=== PATIENT | female | born 1960 | race Caucasian/White ===

== ENCOUNTER → 2016-10-02 | Outpatient (CLI) | payer OTHER ==
--- NOTE | 2016-10-02 22:00 | CT ---
EXAMINATION TYPE: CT brain wo con DATE OF EXAM: 10/02/2016 6:29 PM COMPARISON: NONE HISTORY: 56-year-old female complains of chronic daily migraine headaches x30 years. TECHNIQUE: Examination was done in axial plane without intravenous contrast. Coronal and sagittal r econstructions performed. CT DLP: 1020.3 mGycm Automated exposure control for dose reduction was used. FINDINGS: There is no evidence of acute intracranial hemorrhage, acute ischemic changes, mass, mass-effect, or extra-axial fluid collection. There is no effacement of cerebral sulci or basal subarachnoid cister ns. There is no hydrocephalus. There is no midline shift. Knox-white matter distinction is preserv ed. Paranasal sinuses and mastoid air cells are well pneumatized. Orbits and globes are intact. IMPRESSION: No acute intracranial abnormality seen.
== END | disposition home or self-care (01) ==
LOC: RADCTMAIN 17:47
PROVIDERS: ATTEND Family Medicine
DX: G43.909 Migraine, unspecified, not intractable, without status migrainosus (principal)
CPT/HCPCS: 70450

== ENCOUNTER → 2016-12-04 | Outpatient (CLI) | payer OTHER ==
[2016-12-03 15:29] VITALS: BMI 25.4
[2016-12-04 13:47] VITALS: BP 104/60; PULSE 105; RESP 18; TEMP 98.6
--- NOTE | 2016-12-05 09:17 | P.CONS ---
History of Present Illness - Reason for Consult Consult date: 12/04/16 - History of Present Illness This is the initial consultation visit for this 56 years old female with a chronic history of severe neck pain and headaches started more than 20 years ago , the neck pain and headache is constant and increases with any neck movement or any activity, she had no weakness in the upper or lower extremities, she had no numbness or tingling sensation, no fever or night sweats, the neck pain is constant, increased with neck movement, she had MRI of the brain which was negative for any abnormality, and pain intensity increased over the last year , she denies any visual changes, Past Medical History Past Medical History: Chest Pain / Angina, COPD, GERD/Reflux, Memory Impairment , Musculoskeletal Disorder, Sleep Apnea/CPAP/BIPAP Additional Past Medical History / Comment(s): Tuberculosis history diagnosed August 2015 by biopsy. migraine History of Any Multi-Drug Resistant Organisms: None Reported Past Surgical History: Adenoidectomy, Appendectomy, Tonsillectomy Additional Past Surgical History / Comment(s): left partial lobectomy. dental Past Anesthesia/Blood Transfusion Reactions: No Reported Reaction Past Psychological History: Anxiety, Depression Smoking Status: Current every day smoker Past Alcohol Use History: None Reported Additional Past Alcohol Use History / Comment(s): smoker since age 18 1ppd Past Drug Use History: None Reported - Past Family History Mother Family Medical History: Cancer Additional Family Medical History / Comment(s): breast Father Family Medical History: Cancer Additional Family Medical History / Comment(s): prostate Brother(s) Family Medical History: Cancer Additional Family Medical History / Comment(s): kidney Medications and Allergies Home Medications Medication Instructions Recorded Confirmed Type Albuterol Sulfate [Proair Hfa] 1 - 2 puff INHALATION RT-Q6H PRN 01/05/16 History Desvenlafaxine Succinate [Pristiq 100 mg PO DAILY 01/05/16 12/04/16 History ER] LORazepam [Ativan] 0.5 mg PO BID PRN 01/05/16 12/04/16 History Polyethylene Glycol 3350 [Miralax] 17 gm PO DAILY 01/05/16 12/04/16 History risperiDONE 3 mg PO HS 01/05/16 12/04/16 History traZODone HCL [Desyrel] 150 mg PO HS 01/05/16 12/04/16 History Ipratropium-Albuterol Nebulize 3 ml INHALATION RT-QID PRN 04/01/16 12/04/16 History [Duoneb 0.5 mg-3 mg/3 ml Soln] Alendronate Sodium [Fosamax] 70 mg PO DAILY 12/03/16 12/04/16 History Baclofen [Lioresal] 10 mg PO TID 12/03/16 12/04/16 History HYDROcodone/APAP 10-325MG [Mobile 1 tab PO Q6H PRN 12/03/16 12/04/16 History 10-325] Omeprazole 20 mg PO DAILY 12/03/16 12/04/16 History Pravastatin Sodium [Pravachol] 40 mg PO DAILY 12/03/16 12/04/16 History Allergies Allergy/AdvReac Type Severity Reaction Status Date / Time No Known Allergies Allergy Verified 12/03/16 15:12 Physical Exam Vitals: Vital Signs Temp Pulse Resp BP Pulse Ox 12/04/16 13:38 98.6 F 105 H 18 104/60 95 Social history : smoker , NO ETOH , NO Illegal drugs use Review of Systems : 1- Constitutional : no chills , no fever , no night sweats , 2- Ears : no ear discharge , no change in hearing 3-Nose, Mouth ,Throat ; no bleeding gums, no sore throat , no epistaxis , 4-Cardiovascular : Denies chest pain, , no orthopnea , no palpitation 5-Respiratory : Denies cough , no dyspnea , no hemoptysis 6-Gastrointestinal :, no change in bowel habits , no coffee- ground emesis . 7-Genitourinary : No hematuria , no discharge , no incontinence, 8-Musculoskeletal : No gait dysfunction , report neck and upper thoracic pain , 9- Neurological : no ataxia , no tremor , no sezure , 10-Psychatric , no suicidal ideation no hallucination 11- Endocrine : no cold intolerence , no polyuria , no polydypsia , 12-Hematologic : no easy bleeding , no easy brusing , 13-Allergic / immunology : no angioedema , no wheezing ,no allergic rhinitis 14-Integumentary : no brttle nails , no change hair / nails , no foot/leg ulcers . Physical Examinations : 1-Constitutional : Cooperative , not in acute distress . 2-HEENT : nech ; supple , no Lymphadenopathy , no Thyromegaly , :eyes , no icterus, no photophobia . ENT : , normal oropharynx , no Thrush 3- Respiratory : Chest clear to auscultations Bilaterally , no wheezing . 4- Cardiovascular : regular rate and rhythem , S1 , S2 , no S3 , no S4. 5- Gastrointestinal: abdomen soft no tenderness , no organomegally . 6- Genitourinary : Defferred . 7-Integumentary : No cellulitis , no ulcers , normal skin turgor , no cyanotic . 8- neurologic : Cranial nerve II to XII intact , no focal neurological deffecit 9-psychatric : alert , oriented X 3 , appropriate affect , intact judgment and insight . 10-Lymphatic : no Lymphadenopathy. 11- musculoskeltal: normal gait Cervical Spine motor stregnth in the deltoid and biceps, normal right side , normal Left side motor stregnth biceps and the wrist extensors normal right side ,normal left side . motor stregnth in the triceps muscle . normal Right side , normal Left side deep tendon reflexes normal at the biceps , normal at Brachioradialis , normal at triceps. positive cervical facet loading test . tenderness over the occipital nerve bilaterally Lumber spine moter stegnth lower extremities ,thigh and legs 5/5 Right side , 5/5 Left side Results Comments: Computed tomography scan of the brain= normal Assessment and Plan Plan: Assessment and plan= chronic neck pain and headache mostly secondary to cervical spondylosis with cervical facet arthropathy/cervicogenic headache/ She'll could benefit from Topamax 25 mg twice a day, continue baclofen 10 mg 3 times a day, she is currently on Mobile 10/325 every 6 hours she denies any side effects of the medication, we'll order MRI of the cervical spine, in the future patient can benefit from diagnostic medial branch block cervical area C2 3/C3-4 /3rd occipital Time with Patient: Greater than 30
== END | disposition home or self-care (01) ==
LOC: PNWHC3 12:40
PROVIDERS: ATTEND Specialist
DX: M47.812 Spondylosis without myelopathy or radiculopathy, cervical region (principal); M46.82 Other specified inflammatory spondylopathies, cervical region; F17.200 Nicotine dependence, unspecified, uncomplicated; F41.9 Anxiety disorder, unspecified; F32.9 Major depressive disorder, single episode, unspecified; Z79.899 Other long term (current) drug therapy
CPT/HCPCS: 99211

== ENCOUNTER → 2017-01-03 | Outpatient (CLI) | payer OTHER ==
--- NOTE | 2017-01-06 11:03 | MM ---
Reason for exam: screening (asymptomatic). Last mammogram was performed 1 year ago. History: Patient is postmenopausal and is nulliparous. Family history of breast cancer in sister at age 55. Physical Findings: A clinical breast exam by your physician is recommended on an annual basis and results should be correlated with mammographic findings. MG Screening Mammo w CAD Bilateral CC and MLO view(s) were taken. Prior study comparison: December 29, 2015, bilateral MG diagnostic mammo w CAD ERASTO. The breast tissue is extremely dense which could obscure a lesion on mammography. Finding: There are typically benign vascular, round, grouped/clustered calcifications in the left breast. There is no discrete abnormality. ASSESSMENT: Incomplete: need additional imaging evaluation, BI-RAD 0 RECOMMENDATION: Ultrasound of the left breast. (palpable by patient, dense tissue) [facility] will attempt to contact patient to return for ultrasound.
== END | disposition home or self-care (01) ==
LOC: RADMAMWWP 15:24
PROVIDERS: ATTEND Family Medicine
DX: Z12.31 Encounter for screening mammogram for malignant neoplasm of breast (principal); Z80.3 Family history of malignant neoplasm of breast

== ENCOUNTER → 2017-01-07 | Outpatient (CLI) | payer OTHER ==
--- NOTE | 2017-01-08 07:01 | USB ---
Reason for exam: additional evaluation requested from abnormal screening. History: Patient is postmenopausal and is nulliparous. Family history of breast cancer in sister at age 55, breast cancer in mother at age 73, and breast cancer in maternal aunt. Physical Findings: Nurse did not find any significant physical abnormalities on exam. US Breast Workup Limited LT Left breast ultrasound demonstrates no cystic or solid lesion seen. These results were verbally communicated with the patient and result sheet given to the patient on 01/07/17. ASSESSMENT: Negative, BI-RAD 1 RECOMMENDATION: Return to routine screening mammogram schedule for both breasts.
== END | disposition home or self-care (01) ==
LOC: RADUSWWP 14:57
PROVIDERS: ATTEND Family Medicine
DX: R92.8 Other abnormal and inconclusive findings on diagnostic imaging of breast (principal)

== ENCOUNTER → 2017-01-08 | Outpatient (CLI) | payer OTHER ==
--- NOTE | 2017-01-08 15:21 | CT ---
EXAMINATION TYPE: CT cervical spine wo/w con DATE OF EXAM: 01/08/2017 COMPARISON: NONE HISTORY: Cervical spondylosis per order. Headaches with neck pain for [address] DLP: 894 mGycm. Automated Exposure Control for Dose Reduction was Utilized. TECHNIQUE: CT scan of the cervical spine is obtained without and with IV contrast, axial images are obtained, sagittal and coronal reformatted images are also reviewed. Patient is injected with 100 cc of Omnipaque 300 for the study FINDINGS: Cervical spine is visualized in its entirety from C1 through upper thoracic levels, demonst rates straightened alignment without evidence of acute fracture or dislocation. Prevertebral soft ti ssue appears within normal limits. The C1-C2 articulation is within normal limits on the coronal alcira ges. Vertebral body heights are maintained. There is mild to moderate disc space narrowing with vacuum dis c phenomenon and moderate spurring at C5-C6 level. Posterior spur disc complex effaces anterior theca l sac at this level on sagittal images. No suspicious postcontrast enhancement is seen. Review of axial images shows the C2-C3, C3-C4, C4-C5 levels all to appear within normal limits. Axial images at C5-C6 level confirm central spur disc complex effacing anterior thecal sac, bilateral neural foramina are patent. Axial images at C6-C7 and C7-T1 levels are within normal limits. There is moderate to severe emphysematous change in visualized lung apices with right greater than le ft mild to moderate apical scarring is seen. IMPRESSION: Straightening of cervical spine with degenerative change C5-C6 level.
== END | disposition home or self-care (01) ==
LOC: RADCTMAIN 14:39
PROVIDERS: ATTEND Specialist
DX: M47.812 Spondylosis without myelopathy or radiculopathy, cervical region (principal)
CPT/HCPCS: 72127; Q9967

== ENCOUNTER 2017-01-13 07:41 | Day surgery (SDC) | payer OTHER ==
[2017-01-09 14:49] VITALS: BMI 24.4
[2017-01-13] MEDS ORDERED: LIDOCAINE 1% 20 ML VIAL (10MG/ML) FOR IV START INTRADERMA ONE (07:43)
[2017-01-13] MEDS ORDERED: LACTATED RINGERS 1,000 ML IV ONE (07:45)
[2017-01-13 07:53] VITALS: TEMP 93.8
[2017-01-13] MEDS ORDERED: DEXAMETHASONE SOD PHOS (MDV) 100 MG/10 ML VIAL ONE (08:26)
[2017-01-13] MEDS ORDERED: MIDAZOLAM 2 MG/2 ML VIAL ONE (08:26)
[2017-01-13] MEDS ORDERED: BUPIVACAINE (PF) 0.5% 30 ML VIAL ONE (08:26)
--- NOTE | 2017-01-13 08:49 | P.PCN ---
Date of Procedure: 01/13/17 Preoperative Diagnosis: Postoperative Diagnosis: Procedure(s) Performed: Implants: Surgeon: Marquez Saenz Pathology: none sent Condition: stable Disposition: PACU Indications for Procedure: Operative Findings: Description of Procedure: PREOPERATIVE DIAGNOSIS: Cervical spondylosis without myelopathy, cervicogenic headache. POSTOPERATIVE DIAGNOSIS: same PROCEDURES: Diagnostic bilateral C3, C4 medial branch, and third occipital nerve steroid injection, with fluoroscopic guidance ANESTHESIA: Local with 1% lidocaine; conscious sedation EBL: Minimal PROCEDURE INDICATION: This is a patient with neck pain and headaches secondary to cervical arthropathy unresponsive to more conservative treatments. No use of anticoagulants; first cervical MBB today. PROCEDURE DESCRIPTION / TECHNIQUE: The patient was seen and identified in the preoperative area. Risks, benefits, complications, and alternatives were discussed with the patient (including but not limited to incomplete pain relief , bleeding, infection, nerve damage, and allergies to medications), the patient agreed to proceed with the procedure and signed the consent after all questions were answered. IV was started. Vital signs remained stable throughout the procedure. Patient was taken to the OR and time out was completed. The patient was placed in the prone position on the procedure table. A pillow was placed under the patients chest to increase the cervical interlaminar space. The cervical area was prepped and draped in the usual sterile fashion. Critical pause was taken. Vital signs were closely monitored during the procedure. Conscious sedation was used during the procedure to decrease patients anxiety. Using cross-table lateral fluoroscopy, the centroid of the trapezoid of right C3 , was identified, marked, and localized with 1% lidocaine. Subsequently, a 22 G 3.5-inch spinal needle was advanced guided by fluoroscopy to the centroid of the trapezoid of C3. Needle tip position was confirmed at the centroid of the trapezoids of C3 with anteroposterior fluoroscopy. Subsequently, 1 ml of a combination of 20 mg Decadron and 4 ml of preservative-free Bupivacaine 0.5% was injected after negative aspiration for blood and CSF. Needle was then removed intact. The same procedure was repeated at the right C2/C3 facet joint (for third occipital nerve), right C4, left C2/C3, left C3, and left C4 levels; aspirations were negative at each injection site. At the end of the procedure, skin was cleansed and bandages applied. COMPLICATIONS: No acute complications. COMMENTS: DISPOSITION / PLANS: The patient was placed in a supine position and transferred to the recovery area in a stable condition for observation and was discharged from the recovery room after meeting discharge criteria. Home discharge instructions given to the patient by the staff. The patient was reexamined prior to discharge. The patient will schedule a repeat cervical MBB in 4-6 weeks. Consider adding C5-C6 at next visit if limited relief from first CMBB based on CT result.
[2017-01-13] MEDS ORDERED: KETOROLAC 30 MG/ML 1 ML VIAL IVP STA (09:16)
[2017-01-13 09:22] VITALS: RESP 18
[2017-01-13 09:35] VITALS: BP 106/64; PULSE 73
--- NOTE | 2017-01-13 09:57 | FL ---
FLUOROSCOPY 24 seconds of fluoroscopy time were utilized during cervical branch block. 5 images document the proc edure.
== END 2017-01-13 10:02 | disposition home or self-care (01) ==
LOC: ORPAIN 07:41
PROVIDERS: ATTEND Anesthesiology
DX: G89.29 Other chronic pain (principal); M47.812 Spondylosis without myelopathy or radiculopathy, cervical region; M46.92 Unspecified inflammatory spondylopathy, cervical region; R51 Headache; E78.5 Hyperlipidemia, unspecified; F41.9 Anxiety disorder, unspecified; F31.9 Bipolar disorder, unspecified; M81.0 Age-related osteoporosis without current pathological fracture; J44.9 Chronic obstructive pulmonary disease, unspecified; K21.9 Gastro-esophageal reflux disease without esophagitis; G47.30 Sleep apnea, unspecified; F17.200 Nicotine dependence, unspecified, uncomplicated; Z79.899 Other long term (current) drug therapy; Z79.891 Long term (current) use of opiate analgesic
CPT/HCPCS: 64490; 64491; 64492; 99152; G0480; J2250; J1885; J1100; 80307; 80346; 80356; 80364

== ENCOUNTER → 2017-02-10 | Outpatient (CLI) | payer OTHER ==
[2017-02-10 12:21] VITALS: BP 99/71; PULSE 76; RESP 16; TEMP 97.6
--- NOTE | 2017-02-10 12:52 | P.PN ---
Progress Note - Text This is a 56-year-old female with chronic frequent headaches. The patient failed to respond to antimigraine medications and also failed to respond to injections on the cervical spine. I think the cervical spine as a cause of her headache is questionable at this point especially that her headache does not change with the movements of her neck. The patient also feels pain in the upper back area and she states that taking [place] twice a day help slightly with the headache only for half an hour or so but it does help her with the upper back area pain. At this point I will hold off on the injections on the cervical spine because of the patient's failure to respond to these injections previously of continue [place] twice a day but I told the patient that opioids usually do not help with the headache and I'll give her [place] to help her with the spine pain. I also advised the patient to visit her neurologist one more time since the last time she had seen a neurologist was 2 years ago. Her neuro exam today did not show any lateralizing signs or symptoms. We will see the patient 2 months from now.
== END | disposition home or self-care (01) ==
LOC: PNWHC3 11:51
PROVIDERS: ATTEND Anesthesiology
DX: R51 Headache (principal); M54.2 Cervicalgia
CPT/HCPCS: G0480; G0463; 80307; 80346; 80356; 80364; 99211

== ENCOUNTER → 2017-04-07 | Outpatient (CLI) | payer OTHER ==
[2017-04-07 12:47] VITALS: BP 111/73; PULSE 82; RESP 16
--- NOTE | 2017-04-07 13:01 | P.PN ---
Progress Note - Text This is a 56-year-old female with history of headache and neck pain. Today and contrary to what she told me last time, she does say now that the last injection of the medial branches of her cervical spine did help her pain. She is getting numbness in her right arm at this point and also feels muscle spasm in her chest and also in her feet. The patient still takes 2 pills of [place] a day to help her with the neck and upper back pain. Today I will schedule the patient to have cervical medial branch block for levels C2-C3 and third occipital nerve. I will continue with her [place] twice a day as needed and I will add magnesium oxide for her muscle spasm. The patient also may need to have medial branch block in the cervical spine for the lower levels see 56 and 7 to address her lower neck and upper back pain but I will start by doing the upper levels to address her headache.
== END | disposition home or self-care (01) ==
LOC: PNWHC3 12:15
PROVIDERS: ATTEND Anesthesiology
DX: M54.2 Cervicalgia (principal); M54.9 Dorsalgia, unspecified; R51 Headache; R20.0 Anesthesia of skin; M62.838 Other muscle spasm; Z79.899 Other long term (current) drug therapy
CPT/HCPCS: 99211

== ENCOUNTER 2017-04-29 07:51 | Day surgery (SDC) | payer OTHER ==
[2017-04-24 15:43] VITALS: BMI 21.8
[2017-04-29 08:31] VITALS: RESP 16; TEMP 97.9
[2017-04-29] MEDS ORDERED: LACTATED RINGERS 1,000 ML IV ONE (08:35)
--- NOTE | 2017-04-29 09:33 | P.PCN ---
Date of Procedure: 04/29/17 Surgeon: Marquez Saenz Pathology: none sent Condition: stable Disposition: PACU Description of Procedure: PREOPERATIVE DIAGNOSIS: Cervical spondylosis without myelopathy, cervicogenic headache. POSTOPERATIVE DIAGNOSIS: same PROCEDURES: Diagnostic bilateral C2-C3 medial branch block and third occipital nerve steroid injection, with fluoroscopic guidance ANESTHESIA: Local with 1% lidocaine; conscious sedation EBL: Minimal PROCEDURE INDICATION: This is a patient with neck pain and headaches secondary to cervical arthropathy unresponsive to more conservative treatments. No use of blood thinners. MBB #1 today. PROCEDURE DESCRIPTION / TECHNIQUE: The patient was seen and identified in the preoperative area. Risks, benefits, complications, and alternatives were discussed with the patient (including but not limited to incomplete pain relief , bleeding, infection, nerve damage, and allergies to medications), the patient agreed to proceed with the procedure and signed the consent after all questions were answered. IV was started. Vital signs remained stable throughout the procedure. Patient was taken to the OR and time out was completed. The patient was placed in the prone position on the procedure table. A pillow was placed under the patients chest to increase the cervical interlaminar space. The cervical area was prepped and draped in the usual sterile fashion. Critical pause was taken. Vital signs were closely monitored during the procedure. Conscious sedation was used during the procedure to decrease patients anxiety. Using cross-table lateral fluoroscopy, the centroid of the trapezoid of right C3 , was identified, marked, and localized with 1% lidocaine. Subsequently, a 25 G spinal needle was advanced guided by fluoroscopy to the centroid of the trapezoid of C3. Needle tip position was confirmed at the centroid of the trapezoids of C3 with anteroposterior fluoroscopy. Subsequently, 1 ml of a combination of 10 mg Decadron and 3 ml of preservative-free Bupivacaine 0.5% was injected after negative aspiration for blood and CSF. Needle was then removed intact the same procedure was repeated at the right C2/C3 facet joint ( for third occipital nerve). The procedure was repeated exactly in the same manner on the left side for C2- C3 and third occipital nerve on the left side. COMPLICATIONS: No acute complications. COMMENTS: DISPOSITION / PLANS: The patient was placed in a supine position and transferred to the recovery area in a stable condition for observation and was discharged from the recovery room after meeting discharge criteria. Home discharge instructions given to the patient by the staff. The patient was reexamined prior to discharge. The patient will schedule a repeat CMBB C2-C3, TON bilateral. If limited relief, consider adding C3-C4 level for next procedure.
[2017-04-29] MEDS ORDERED: IV FLUID CONTINUATION 1,000 ML IV ONE (09:42)
[2017-04-29 10:10] VITALS: BP 122/79; PULSE 70
--- NOTE | 2017-04-29 11:02 | FL ---
Fluoroscopy HISTORY: Pain 19 seconds fluoroscopy time supplied to the referring clinician. 4 intraoperative C-arm images docum ent the procedure. See dictated report from anesthesia.
== END 2017-04-29 10:30 | disposition home or self-care (01) ==
LOC: ORPAIN 07:51
PROVIDERS: ATTEND Anesthesiology
DX: M47.812 Spondylosis without myelopathy or radiculopathy, cervical region (principal); R51 Headache; Z79.891 Long term (current) use of opiate analgesic
CPT/HCPCS: 99152; 64490; 64491; J2250; J1100; 64450

== ENCOUNTER → 2017-06-02 | Outpatient (CLI) | payer OTHER ==
[2017-06-02 14:35] VITALS: BP 103/58; PULSE 86; RESP 16; TEMP 98.2
--- NOTE | 2017-06-02 14:50 | P.PN ---
Progress Note - Text Progress Note Date: 06/02/17 This is a 56-year-old female with a chronic history of migraine headaches and neck pain. The patient failed to respond to cervical medial branch blocks including the third occipital nerve. She tried multiple antimigraine medications and also failed to respond to any of them. At this point I would like to refer the patient to a neurologist for persistent migraine headaches. The last time she saw a neurologist with about 10 years ago in [place] however she said that she also in saw neurologist in [place] about one year ago who suggested what seems to be a sphenopalatine node injection however she did not want to go through this procedure. At this point I will give her prescription for [place] 10 mg twice a day and I will see her after she sees a neurologist. PQRS measures: 1-Patient's medications are documented in the chart. 2-Tobacco use is negative, counseling given. The patient is taking Chantix. 3-Patient has not had a pneumococcal vaccine. 4-Advanced care planning discussed, patient unable to give 5-Opioid contract signed with the patient. 6-Pain positive, follow-up visit or procedure scheduled 7-Patient's blood pressure measured and documented within normal limits. 8-Patient's weight was measured, and body mass index was normal 9-Patient WAS NOT identified as an unhealthy alcohol user.
== END | disposition home or self-care (01) ==
LOC: PNWHC3 14:07
PROVIDERS: ATTEND Anesthesiology
DX: G43.909 Migraine, unspecified, not intractable, without status migrainosus (principal); M54.2 Cervicalgia
CPT/HCPCS: 99211

== ENCOUNTER → 2017-07-07 | Outpatient (CLI) | payer OTHER ==
--- NOTE | 2017-07-07 17:36 | XR ---
EXAMINATION: XR chest 2V DATE AND TIME: 07/07/2017 5:07 PM ORDERING PROVIDER: Alhaji Prajapati MD CLINICAL INDICATION: J44.9 COPD TECHNIQUE: PA and lateral COMPARISON: Chest radiographs 04/01/2016 DESCRIPTION: The lungs are clear, other than the numerous calcifications, particularly within the rig ht lower lobe and consistent with pulmonary calcified granulomas, seen on the prior study. * There is a new 1 cm opacity projecting just above the minor fissure, not definitely seen on the mj or study. While the finding appears to be calcific density, and while there appears to be a candidate for this finding on the prior study (related to the EKG lead over the right mid chest), the rotation of these radiographs are similar. Therefore, would CT characterization at this time. The pleural spaces are negative. The cardiac silhouette is not enlarged, and the mediastinal and pleural silhouettes are unremarkable. The skeletal structures are intact without focal findings. The soft tissues are unremarkable. IMPRESSION: WOULD SUGGEST CHEST CT CHARACTERIZATION AT THIS TIME.
== END | disposition home or self-care (01) ==
LOC: RADXRMAIN 16:59
PROVIDERS: ATTEND Internal Medicine Sleep Medicine
DX: J44.9 Chronic obstructive pulmonary disease, unspecified (principal)
CPT/HCPCS: 71020

== ENCOUNTER → 2017-08-14 | Outpatient (CLI) | payer OTHER ==
--- NOTE | 2017-08-14 14:44 | P.PN ---
Progress Note - Text Progress Note Date: 08/14/17 Patient returns for followup for chronic headaches. Patient has undergone two sets of CMBBs without relief of her headache pain, although she did have some relief in the neck. She has an appointment to see Dr. Og for headaches in August. Patient continues on [place] BID medications for pain with some relief , but is unable to leave her house due to severe headache pain. Patient denies adverse drug effects from medications. Today, pt denies new-onset weakness, bowel/bladder incontinence, or any other signs or symptoms of cauda equina syndrome. There are no signs of acute intoxication, and no indications of medication diversion or overuse. In addition to above, 13-point review of systems is also negative for chest pain , shortness of breath, changes in vision, changes in hearing, new onset weakness , abdominal pain, diarrhea, extreme fatigue, malaise, fever, skin changes, homicidal or suicidal ideation, or bowel or bladder incontinence. Vital Signs: Reviewed in EMR Gen: WDWN, AAOx3, NAD HEENT: NCAT, EOMI, hearing grossly normal, no tenderness over occipital ridges Pulm: resp unlabored Abd: soft, NT, ND Neck: supple, trachea midline Neuro: CN II-XII grossly intact, muscle strength lower extremities PRESERVED Imaging: Reviewed in EMR Assessment: 1. chronic migraine 2. cervical spondylosis 3. chronic pain syndrome Plan: 1. Explanation: Opioid and psychological risk scores were reviewed. Diagnoses , prognoses, and multiple treatment options including but not limited to physical therapy, interventional therapies, adjuvant medical therapies, narcotic medication therapies, and surgery were discussed with the patient and all questions were answered to the patient's satisfaction. 2. Opioid agreement: Patient has previously signed narcotic agreement, and was orally counseled to not overuse, abuse, divert, or cell medications, and to take them as prescribed by only 1 healthcare provider. The patient was also counseled to store opioid medications in a safe and preferably locked location. Patient was also counseled against driving or operating heavy equipment while using narcotic medications and also to not use alcohol or any illicit or recreational drugs. The patient verbalized understanding that lack of compliance with any of the above and likely result in failure to renew narcotic prescriptions, possible discharge from the clinic, and possible legal ramifications thereafter if indicated. 3. Counseling: The patient was counseled extensively on BODY MASS INDEX, EXERCISE. Specifically, the patient was instructed regarding the importance of weight control, and exercise in the context of both chronic pain and overall health. 4. Procedures: none for now 5. Consultations: neurology 6. Investigations: None 7. Medications: [place] 10/325 #60 with two refills 8. Disposition: f/u for re-eval in 3 months (if needed) PQRS measures: 1-Patient's medications are documented in the chart. 2-Tobacco use is negative 3-Patient has not had a pneumococcal vaccine. 4-Advanced care planning discussed, patient unable to give. 5-Opioid contract signed with the patient. 6-Pain positive, follow-up visit or procedure scheduled 7-Patient's blood pressure measured and documented, and patient will follow up with the primary care due to hypertension. 8-Patient's weight was measured, and body mass index ABOVE the normal limits, and counseling was done. Patient instructed to follow up with PCP. 9-Patient WAS NOT identified as an unhealthy alcohol user.
[2017-08-14 14:51] VITALS: BP 113/70; PULSE 98; RESP 16
== END | disposition home or self-care (01) ==
LOC: PNWHC3 13:48
PROVIDERS: ATTEND Anesthesiology
DX: G89.4 Chronic pain syndrome (principal); G43.909 Migraine, unspecified, not intractable, without status migrainosus; M47.812 Spondylosis without myelopathy or radiculopathy, cervical region; Z79.891 Long term (current) use of opiate analgesic
CPT/HCPCS: 80307; G0480 ×3; G0463; 80346; 80356; 80364; 99211

== ENCOUNTER → 2017-09-18 | Outpatient (CLI) | payer OTHER ==
--- NOTE | 2017-09-18 14:59 | MR ---
EXAMINATION TYPE: MR brain wo con DATE OF EXAM: 09/18/2017 2:42 PM COMPARISON: NONE HISTORY: headaches FINDINGS: The ventricles, basal cisterns and sulci overlying the cerebral convexities are minimally enlarged. There is evidence of minimal periventricular white matter ischemic demyelination. Remote deep white matter insults are also noted. No acute edema is seen on diffusion weighted imaging. There is no evidence for midline shift or mass effect. Acute intracranial hemorrhage or extra-axial collection is not evident. The paranasal sinuses and mastoid air cells are well-aerated. IMPRESSION: Age-related atrophic and chronic small vessel ischemic change. No acute intracranial process at this time.
== END | disposition home or self-care (01) ==
LOC: RADMRIMAIN 14:16
PROVIDERS: ATTEND Psychiatry & Neurology Neurology
DX: G31.1 Senile degeneration of brain, not elsewhere classified (principal); I67.82 Cerebral ischemia; M54.81 Occipital neuralgia
CPT/HCPCS: 70551

== ENCOUNTER → 2017-10-09 | Outpatient (CLI) | payer OTHER ==
[2017-10-09 16:20] LABS: Blood Urea Nitrogen 10 mg/dL (7-17); Lithium 0.9 mmol/L
[2017-10-09 16:35] LABS: T4, Free (Free Thyroxine) 0.73 ng/dL (0.78-2.19)
== END | disposition home or self-care (01) ==
LOC: LABWHC1 15:21
PROVIDERS: ATTEND Psychiatry & Neurology Psychiatry
DX: F31.32 Bipolar disorder, current episode depressed, moderate (principal)
CPT/HCPCS: 36415; 80178; 82565; 84439; 84443; 84520

== ENCOUNTER → 2017-11-06 | Outpatient (CLI) | payer OTHER ==
[2017-11-06 13:14] VITALS: BP 95/69; PULSE 109; RESP 18
--- NOTE | 2017-11-06 13:35 | P.PN ---
Subjective Progress Note Date: 11/06/17 This is 57 years old female with a chronic history of severe neck pain and headache, she is diagnosed with cervicogenic headache , and cervical spondylosis , we have done diagnostic medial branch block cervical area C2-C3/C3 4 and third occipital nerve, patient reported that her neck pain improved but her headache was the same she had no benefit, patient denies any motor or sensory deficit, the headache is constant it's more on the left side, occasionally she has some headache on the right side, she was evaluated by neurologist Dr. Og , and she recommended occipital nerve block Objective - Vital Signs Vital signs: Vital Signs Temp Pulse 109 H 11/06/17 13:04 Resp 18 11/06/17 13:04 BP 95/69 11/06/17 13:04 Pulse Ox 98 11/06/17 13:04 Intake & Output 11/05/17 11/06/17 11/06/17 18:59 06:59 18:59 Weight 63.503 kg - Exam Physical Examinations : 1-Constitutiona : Cooperative , not in acute distress . 2-HEENT : nech ; supple , no Lymphadenopathy , normal thyroid size . eyes : no ptosis , no icterus, no photophobia . ENT : normal of hearing , normal oropharynx , no Thrush . 3- Respiratory : Chest clear to auscultations Bilaterally , no wheezing , no Rhonchi . 4- Cardiovascular : regular rate and rhythem , S1 , S2 , no S3 , no S4. 5- Gastrointestinal : abdomen soft no tenderness , bowel sounds positive all four quadrents , no organomegally . 6- Genitourinary : Defferred . 7- neurologic : Cranial nerve II to XII intact , no focal neurological deffecit . 8-psychatric : alert , oriented X 3 , appropriate affect , intact judgment and insight . 9-Lymphatic : no Lymphadenopathy . 10- musculoskeltal : cervical spine = motor stregnth in the deltoid and biceps, motor stregnth biceps and the wrist extensors (C6) . motor stregnth in the triceps muscle . deep tendon reflexes normal at the biceps , normal at Brachioradialis , normal at the Triceps positive cervical facet loading test . Severe tenderness over the occipital nerve bilaterally, more prominent on the left side Lumber spine = normal moter stegnth lower extremities ,thigh and legs .5/5 Assessment and Plan Assessment: Assessment and plan= 1-occipital neuralgia 2-cervicogenic headache 3-cervical spondylosis Status post diagnostic medial branch block cervical area C2 3 , C3 4 and third occipital nerve, patient had no benefit from it she continued to have severe headache Tissue was evaluated by Dr. Og ,and she recommended occipital nerve block chronic and current use of high-risk medication (opioids) Patient denies any side effects of the current pain medication and the current treatment/medication ML and the patient to do activity of daily living , Diagnoses, prognosis, treatment options, including but not limited to physical therapy, medication management, interventional therapies, and surgery, were discussed with the patient All the questions answered Patient signed the narcotic agreement, and he was orally counseled, not to overuse, not to abuse, not to Divert , not tp sell pain medication, and to take it as prescribed only, Patient was counseled not to drive or operate heavy equipment while using narcotic medication, and advised not to use alcohol or any Illicit drugs while using the narcotis, the patient's verbalized understanding that lack of compliance with any of the above instructions and will likely to cause discharge from the pain service, not to renew his narcotic prescriptions Medication managements= patient will be given prescription refills for [place] 10/325 every 12 hours dispense 60 with one refill, patient could benefit from Mobic 7.5 by mouth twice a day, and prescription refill for baclofen 10 mg 3 times a day dispense 90 with 1 refill Patient could benefit from bilateral occipital nerve block, procedure risk and benefits and alternatives discussed with the patient and she agreed with the preceding , Time with Patient: Less than 30
== END | disposition home or self-care (01) ==
LOC: PNWHC3 12:23
PROVIDERS: ATTEND Specialist
DX: M54.81 Occipital neuralgia (principal); M47.812 Spondylosis without myelopathy or radiculopathy, cervical region; M54.2 Cervicalgia; R51 Headache; Z98.890 Other specified postprocedural states
CPT/HCPCS: 99211

== ENCOUNTER 2017-11-20 07:36 | Day surgery (SDC) | payer OTHER ==
[2017-11-17 14:23] VITALS: BMI 26.0
[2017-11-20 08:10] VITALS: RESP 18; TEMP 97.6
[2017-11-20] MEDS ORDERED: LACTATED RINGERS 1,000 ML IV ONE (08:24)
[2017-11-20] MEDS ORDERED: LIDOCAINE 1% 20 ML VIAL (10MG/ML) FOR IV START INTRADERMA ONE (08:24)
[2017-11-20 08:31] LABS: Glucose,Whole Blood 93 mg/dL (75-99)
--- NOTE | 2017-11-20 08:50 | P.PCN ---
Date of Procedure: 11/20/17 Surgeon: Froylan Farmer Description of Procedure: Pre-operative diagnosis: 1- Bilateral occipital neuralgia Post Operative Diagnosis 1- Bilateral occipital neuralgia Procedure: 1- Bilateral occipital nerve block ANESTHESIA: none EBL: Minimal PROCEDURE INDICATION: The patient with neck pain and headache secondary to occipital neuralgia unresponsive to conservative treatments. She has undergone previous diagnostic cervical medial branch nerve blocks. These were helpful for her neck pain but did not help with her headaches. PROCEDURE DESCRIPTION / TECHNIQUE: The patient was seen and identified in the preoperative area. Risks, benefits, complications, and alternatives were discussed with the patient, the patient agreed to proceed with the procedure and signed the consent. IV was started. Vital signs remained stable throughout the procedure. Patient was taken to the OR and time out was completed. The patient was placed in the seated position on the procedure table. The cervical area and right occiptial area were prepped with alcohol swab. Vital signs were closely monitored during the procedure. The right occiptal ridge was palpated and was then accessed with a 25 G needle. Then after negative aspiration, 6 ml of the block solution containing 4 ml of PF Buvicaine 0.5% and Kenalog 40 mg was injected. Needle was withdrawn intact. Then the same procedure was repeated on the left side and related the left occipital nerve block, after negative aspiration 4 mL of the block solution containing ropivacaine 0.5% and 40 mg of Kenalog injected after negative aspiration Patient tolerated procedure well. No acute complications. She will follow-up in 2-4 weeks for repeat of this procedure.
[2017-11-20] MEDS ORDERED: IV FLUID CONTINUATION 1,000 ML IV ONE (08:51)
[2017-11-20 09:16] VITALS: BP 104/72; PULSE 78
== END 2017-11-20 09:29 | disposition home or self-care (01) ==
LOC: ORPAIN 07:36
PROVIDERS: ATTEND Pain Medicine Pain Medicine
DX: M54.81 Occipital neuralgia (principal)
CPT/HCPCS: 64405; J3301

== ENCOUNTER → 2018-01-01 | Outpatient (CLI) | payer OTHER ==
[2018-01-01 12:09] VITALS: BP 90/54; RESP 18
[2018-01-01 12:17] VITALS: PULSE 98
--- NOTE | 2018-01-01 12:33 | P.PN ---
Progress Note - Text Progress Note Date: 01/01/18 Patient returns for followup for chronic headaches. Patient has undergone two sets of CMBBs without relief of her headache pain, although she did have some relief in the neck. Patient also status post bilateral occipital nerve blocks which she had no benefit. Patient continues on [place] BID medications for pain with some relief, but is unable to leave her house due to severe headache pain. Patient is also being prescribed benzodiazepines, I discussed with her that it 's extremely hazardous for her overall health the consumption of both opiates and benzodiazepines. During our discussion I mentioned that we would be unable to prescribe her [place] while being prescribed benzodiazepines by other physicians patient understands this and states that she does one attempt to wean off of the opiates altogether. I did discuss with her that if she did continue with the benzodiazepines that we would altogether stop prescribing her opiates. Patient has tried and failed multiple therapies for her headaches which include Botox injections, acupuncture, cervical medial branch blocks, and occipital nerve block. Patient does have a cervical MRI scheduled in the coming days, also was referred to a headache specialist through [facility], and has an appointment later this month. Today, pt denies new-onset weakness, bowel/ bladder incontinence, or any other signs or symptoms of cauda equina syndrome. There are no signs of acute intoxication, and no indications of medication diversion or overuse. In addition to above, 13-point review of systems is also negative for chest pain , shortness of breath, changes in vision, changes in hearing, new onset weakness , abdominal pain, diarrhea, extreme fatigue, malaise, fever, skin changes, homicidal or suicidal ideation, or bowel or bladder incontinence. Vital Signs: Reviewed in EMR Gen: WDWN, AAOx3, NAD HEENT: NCAT, EOMI, hearing grossly normal, no tenderness over occipital ridges Pulm: resp unlabored Abd: soft, NT, ND Neck: supple, trachea midline Neuro: CN II-XII grossly intact, muscle strength lower extremities PRESERVED Imaging: Reviewed in EMR Assessment: 1. chronic migraine 2. cervical spondylosis 3. chronic pain syndrome Plan: 1. Explanation: Opioid and psychological risk scores were reviewed. Diagnoses , prognoses, and multiple treatment options including but not limited to physical therapy, interventional therapies, adjuvant medical therapies, narcotic medication therapies, and surgery were discussed with the patient and all questions were answered to the patient's satisfaction. 2. Opioid agreement: Patient has previously signed narcotic agreement, and was orally counseled to not overuse, abuse, divert, or cell medications, and to take them as prescribed by only 1 healthcare provider. The patient was also counseled to store opioid medications in a safe and preferably locked location. Patient was also counseled against driving or operating heavy equipment while using narcotic medications and also to not use alcohol or any illicit or recreational drugs. The patient verbalized understanding that lack of compliance with any of the above and likely result in failure to renew narcotic prescriptions, possible discharge from the clinic, and possible legal ramifications thereafter if indicated. 3. Counseling: The patient was counseled extensively on BODY MASS INDEX, EXERCISE. Specifically, the patient was instructed regarding the importance of weight control, and exercise in the context of both chronic pain and overall health. 4. Procedures: none for now 5. Consultations: neurology 6. Investigations: Maps reviewed 7. Medications: [place] 10/325 #60 zero refills 8. Disposition: f/u for re-eval in 1 month to review cervical MRI. PQRS measures: 1-Patient's medications are documented in the chart. 2-Tobacco use positive and discussed smoking cessation in great detail 3-Patient has not had a pneumococcal vaccine. 4-Advanced care planning discussed, patient unable to give. 5-Opioid contract signed with the patient. 6-Pain positive, follow-up visit or procedure scheduled 7-Patient's blood pressure measured and documented, and patient will follow up with the primary care due to hypertension. 8-Patient's weight was measured, and body mass index ABOVE the normal limits, and counseling was done. Patient instructed to follow up with PCP. 9-Patient WAS NOT identified as an unhealthy alcohol user.
== END | disposition home or self-care (01) ==
LOC: PNWHC3 11:51
PROVIDERS: ATTEND Anesthesiology
DX: G89.4 Chronic pain syndrome (principal); G43.709 Chronic migraine without aura, not intractable, without status migrainosus; M47.812 Spondylosis without myelopathy or radiculopathy, cervical region; Z72.0 Tobacco use; Z79.891 Long term (current) use of opiate analgesic
CPT/HCPCS: 99211

== ENCOUNTER → 2018-01-15 | Outpatient (CLI) | payer OTHER ==
--- NOTE | 2018-01-15 16:26 | MR ---
MRI CERVICAL SPINE: CLINICAL HISTORY: Cervical disc degeneration per order. Headaches with left sided neck pain for 30 ye ars per patient. TECHNIQUE: Multiplanar, multisequence imaging of the cervical spine is performed without and with IV contrast, 5.5 cc of gadolinium was given intravenously. COMPARISON: CT cervical spine January 08, 2017. FINDINGS: Coronal images redemonstrate slight levoconvex scoliotic curvature centered near cervicotho racic junction. Sagittal images of the cervical spine show the craniocervical junction to appear with in normal limits. The cervical and upper thoracic spinal cord is normal in course, caliber, and sign al. Vertebral alignment is anatomic. There is mild to moderate spurring and disc space narrowing at C5-C6 level with posterior disc herniation effacing anterior thecal sac on sagittal images otherwise the vertebral body and intravertebral disk heights are normal. The bone marrow signal intensity is w ithin normal limits. No suspicious enhancement is present. Axial images show tiny central disc protrusion at C2-C3 level minimally effaces the anterior thecal s ac and exiting is 42, bilateral neuroforamina are patent. Axial images at C3-C4 level show more broad-based right paracentral/foraminal disc protrusion and rig ht-sided uncovertebral facet degenerative changes, there is effacement of the anterolateral thecal sa c with asymmetric moderate right-sided neural foraminal narrowing. Left-sided neural foramina is alcantar nt. Axial images at C4-C5 levels a left paracentral disc protrusion effacing anterolateral thecal sac, bi lateral neural foramina are patent. Axial images at C5-C6 levels are broad-based posterior disc protrusion effacing the anterior thecal s ac, bilateral neural foramina are patent. Axial images at C6-C7 level shows small left paracentral disc protrusion mildly effacing the anterior thecal sac, bilateral neural foramina are patent. Axial images at C7-T1 level are felt within normal limits. IMPRESSION: Multilevel degenerative changes in the cervical spine as detailed above, most prominent f indings are noted at C5-C6 level.
== END | disposition home or self-care (01) ==
LOC: RADMRIMAIN 15:20
PROVIDERS: ATTEND Psychiatry & Neurology Neurology
DX: M47.812 Spondylosis without myelopathy or radiculopathy, cervical region (principal)
CPT/HCPCS: 72156; A9581

== ENCOUNTER → 2018-02-11 | Outpatient (CLI) | payer OTHER ==
--- NOTE | 2018-02-11 15:12 | XR ---
EXAMINATION TYPE: XR chest 2V DATE OF EXAM: 02/11/2018 COMPARISON: 07/07/2017 TECHNIQUE: PA and lateral views submitted. HISTORY: COPD FINDINGS: The lungs are clear and there is no pneumothorax, pleural effusion, or focal pneumonia. Calcificati ons are seen within the right lung suggestive of granuloma. There is an ill-defined density seen in t he right upper lobe. The left lung is clear. There is a deformity of the left rib cage. There is no p neumothorax or interstitial edema. There is atherosclerotic change of the aorta. IMPRESSION: 1. Chronic granulomatous changes involving the right lower lobe. Vague nodular density in the right u pper lobe. Recommend CT scan of the chest.
== END | disposition home or self-care (01) ==
LOC: RADXRMAIN 14:39
PROVIDERS: ATTEND Internal Medicine Sleep Medicine
DX: J98.4 Other disorders of lung (principal); J84.10 Pulmonary fibrosis, unspecified; J44.9 Chronic obstructive pulmonary disease, unspecified
CPT/HCPCS: 71046

== ENCOUNTER → 2018-02-11 | Outpatient (CLI) | payer OTHER ==
--- NOTE | 2018-02-11 16:11 | BD ---
EXAMINATION TYPE: Axial Bone Density DATE OF EXAM: 02/11/2018 COMPARISON: NONE CLINICAL HISTORY: Height: 63.5 Weight: 118.6 FRAX RISK QUESTIONS: Alcohol (3 or more units per day): no Family History (Parent hip fracture): yes Glucocorticoids (More than 3mos): no (Ex: prednisone, prednisolone, methylprednisolone, dexamethasone, and hydrocortisone). History of Fracture in Adulthood: yes Secondary Osteoporosis: 1. Type 1 Diabetes: no 2. Hyperthyroidism: no 3. Menopause before 45: no 4. Malnutrition: no 5. Chronic liver disease: no Rheumatoid Arthritis: no Current Tobacco Use: yes RISK FACTORS HISTORY OF: Family History of Osteoporosis: yes Active: no Diet low in dairy products/other sources of calcium: yes Postmenopausal woman: around age 46/47 Lost more than 2 inches in height since high school: no MEDICATIONS: ventalin, norco, meclizine, lithium carb, risperdone, prespiq, trazodone, provocol. Bacl ofen Osteoporosis Medications: fosamax How Lon years Additional History: EXAM MEASUREMENTS: Bone mineral densitometry was performed using the [employer] System. Bone mineral density as measured about the Lumbar spine is: ----- L1-L4(G/cm2): 1.123 T Score Values are as follows: ----- L2: -1.2 ----- L3: -0.2 ----- L4: -0.3 ----- L1-L4: -0.5 Bone mineral density : baseline Bone mineral density about the R hip (g/cm2): 0.707 Bone mineral density about the L hip (g/cm2): 0.671 T Score values are as follows: -----R Neck: -2.4 -----L Neck: -2.6 -----R Total: -2.3 -----L Total: -2.3 Bone mineral density : baseline IMPRESSION: Osteoporosis (T Score less than -2.5). There is increased fracture risk and therapy is usually indicated based on age. Re-Screen 1-2 years. NOTE: T-SCORE=SD OF THE YOUNG ADULT MEAN.
--- NOTE | 2018-02-12 07:50 | MM ---
Reason for exam: additional evaluation requested from prior study. Last mammogram was performed 1 year and 1 month ago. History: Patient is postmenopausal and is nulliparous. Family history of breast cancer in sister at age 55, breast cancer in mother at age 73, and breast cancer in maternal aunt. Physical Findings: Nurse did not find any significant physical abnormalities on exam. MG Diagnostic Mammo w CAD ERASTO Bilateral CC and MLO view(s) were taken. Prior study comparison: January 07, 2017, left breast US breast workup limited LT. December 29, 2015, bilateral MG diagnostic mammo w CAD ERASTO. The breast tissue is extremely dense which could obscure a lesion on mammography. Finding: There are stable heterogeneous, grouped/clustered calcifications in the left breast. No significant changes in finding since January 07, 2017 and December 29, 2015. These results were verbally communicated with the patient and result sheet given to the patient on 02/11/18. ASSESSMENT: Benign, BI-RAD 2 RECOMMENDATION: Routine screening mammogram of both breasts in 1 year.
== END | disposition home or self-care (01) ==
LOC: RADBDWWP 15:03
PROVIDERS: ATTEND Family Medicine
DX: N63.20 Unspecified lump in the left breast, unspecified quadrant (principal); M81.0 Age-related osteoporosis without current pathological fracture
CPT/HCPCS: 77066; 77080

== ENCOUNTER → 2018-02-24 | Outpatient (CLI) | payer OTHER ==
[2018-02-24 14:54] VITALS: BP 107/81; PULSE 88; RESP 16; TEMP 98
--- NOTE | 2018-02-24 15:23 | P.PN ---
Subjective Progress Note Date: 02/24/18 This is a 57-year-old female with history of chronic headache that alternates between the right than the left side however it is more intense in the left side. The patient was referred to us by her neurologist who did an MRI on the brain and on the cervical spine . I tried multiple injections including occipital nerve block and medial branch block in the cervical area at C2 and C3 also third occipital nerve block with no good response. The patient takes [place] 10 mg twice a day which helps her with her neck pain however doesn't help her headache as she states. She also takes Mobic. She failed to respond to multiple antimigraine medications previously. She has developed bradycardia skin lesions on both forearms recently with no itching. Today, pt denies new-onset weakness, bowel/bladder incontinence, or any other signs or symptoms of cauda equina syndrome. There are no signs of acute intoxication, and no indications of medication diversion or overuse. The patient states that sometimes she feels numbness in her right arm but doesn' t last for more than a few minutes she also has the same thing in the right leg occasionally. In addition to above, 13-point review of systems is also negative for chest pain , shortness of breath, changes in vision, changes in hearing, new onset weakness , abdominal pain, diarrhea, extreme fatigue, malaise, fever, skin changes, homicidal or suicidal ideation, or bowel or bladder incontinence. Vital Signs: Reviewed in EMR Gen: AAOx3, NAD HEENT: PERRLA,hearing grossly normal Pulm: resp unlabored,CTA Heart:S1,S2, No Mur Neuro exam of the upper extremities showed decreased but symmetrical muscle strength to 4 out of 5 in general on both sides. She has normal triceps reflex however absent biceps reflex bilaterally and symmetrically. She has tenderness in the cervical paravertebral area more on the left side than the right side She also has grade skin lesions on both forearms that look like purpura She has normal range of motion of the cervical spine Compression of the cervical spine did not cause any radicular symptoms in the arms Neuro: CN II-XII grossly intact, Imaging: Reviewed in EMR/chart Assessment: Migraine headache with possible cervicogenic component not responsive to physical therapy nor injections. Plan: 1. Explanation: Opioid and psychological risk scores were reviewed. Diagnoses , prognoses, and multiple treatment options including but not limited to physical therapy, interventional therapies, adjuvant medical therapies, narcotic medication therapies, and surgery were discussed with the patient and all questions were answered to the patient's satisfaction. 2. Opioid agreement: Signed with the patient and the patient is warned not to use opioids while driving or before driving and not to combine opioids with benzodiazepines or alcohol. 3. Counseling: The patient was counseled extensively on SMOKING CESSATION, BODY MASS INDEX, EXERCISE. Specifically, the patient was instructed regarding the importance of smoking cessation, obesity, and exercise in the context of both chronic pain and overall health. 4. Procedures: None at this point 5. Consultations: The patient is to follow-up with her family physician to workup her skin lesions in the forearms and the occasional numbness in the right upper and lower extremities. I encouraged the patient to seek specialized headache clinic and she will address that with her primary care physician. 6. Investigations: None 7. Medications: Continue [place] and Mobic 8. Disposition: Return to clinic as needed in the future 9. Maps were reviewed and were appropriate. She uses 0.5 mg of Ativan twice a day and she gets that prescribed from her family physician. Objective - Vital Signs Vital signs: Vital Signs Temp 98 F 02/24/18 14:51 Pulse 88 02/24/18 14:51 Resp 16 02/24/18 14:57 BP 107/81 02/24/18 14:51 Pulse Ox 93 L 02/24/18 14:51 Intake & Output 02/23/18 02/24/18 02/24/18 18:59 06:59 18:59 Weight 53.524 kg
== END | disposition home or self-care (01) ==
LOC: PNWHC3 14:29
PROVIDERS: ATTEND Anesthesiology
DX: G43.909 Migraine, unspecified, not intractable, without status migrainosus (principal); Z79.891 Long term (current) use of opiate analgesic; Z79.1 Long term (current) use of non-steroidal anti-inflammatories (NSAID)
CPT/HCPCS: 99211

== ENCOUNTER → 2018-02-25 | Outpatient (CLI) | payer OTHER ==
--- NOTE | 2018-02-26 08:12 | CT ---
EXAMINATION TYPE: CT chest wo con DATE OF EXAM: 02/25/2018 COMPARISON: 04/02/2016 HISTORY: Solitary pulmonary nodule CT DLP: 139.30 mGycm, Automated exposure control for dose reduction was used. CONTRAST: Performed injected with 0 mL of Isovue 300. TECHNIQUE: Axial images were obtained at 5 mm thick sections. Reconstructed images are reviewed on [employer] computer in the coronal plane. FINDINGS: Portion of the thyroid visualized is normal. There is some stable right apical thickening posteriorly. Moderate Emphysematous changes are evident. There is a focal area of pneumonitis within the right lower lobe. Series 4 image 38. This area may be slightly greater in size compared the 2016 study. This measures 2.5 cm transverse compared to 2.0 cm previously. Additionally, there are adjacent inferior small nodules. These appear calcified and stab le. There is a large calcification measuring 380 Hounsfield units and 1.1 cm transverse the superior segm ent right lower lobe, series 4 image 45. This is stable. Additional smaller densities are likewise st able from comparison. Nodules in the periphery of the right lower lobe. Series 4 image 49. This is ca lcified. No enlarged mediastinal or hilar adenopathy is evident. The ascending aorta diameter at the level o f the main pulmonary artery is 3.3 cm. The main pulmonary artery diameter at the bifurcation is 2.8 cm. Very minimal pericardial effusion appears to be present. Limited CT sections are obtained through the upper abdomen. Abdomen is essentially unremarkable. IMPRESSIONS: 1. Focus of pneumonitis within the right lower lobe has increased in size over the interval. Short-te follow-up CT chest in 6 months is recommended. 2. Possible calcified nodules within the right lower lobe are stable over the interval and are compat ible with benign granuloma. 3. Some minimal pericardial effusion appears to be present. 4. Moderate emphysematous changes
== END | disposition home or self-care (01) ==
LOC: RADCTMAIN 18:59
PROVIDERS: ATTEND Internal Medicine Sleep Medicine
DX: J18.9 Pneumonia, unspecified organism (principal); J43.9 Emphysema, unspecified
CPT/HCPCS: 71250

== ENCOUNTER → 2018-03-25 | Outpatient (CLI) | payer OTHER ==
[2018-03-25 13:11] VITALS: BP 111/67; PULSE 112; RESP 16
--- NOTE | 2018-03-26 15:10 | P.PAINPG ---
Subjective Progress Note Date: 03/25/18 This is 57 years old female with a chronic history of severe neck pain and headache, she is diagnosed with cervicogenic headache , and cervical spondylosis , we have done diagnostic medial branch block cervical area C2-C3/C3 4 and third occipital nerve, patient reported that her neck pain improved but her headache was the same she had no benefit, patient denies any motor or sensory deficit, the headache is constant it's more on the left side, occasionally she has some headache on the right side, she was evaluated by neurologist Dr. Og , and she recommended occipital nerve block, and we did occipital nerve block patient reported she had no benefit from, he continued to have severe neck pain and headache, Physical Examinations : 1-Constitutiona : Cooperative , not in acute distress . 2-HEENT : nech ; supple , no Lymphadenopathy , normal thyroid size . eyes : no ptosis , no icterus, no photophobia . ENT : normal of hearing , normal oropharynx , no Thrush . 3- Respiratory : Chest clear to auscultations Bilaterally , no wheezing , no Rhonchi . 4- Cardiovascular : regular rate and rhythem , S1 , S2 , no S3 , no S4. 5- Gastrointestinal : abdomen soft no tenderness , bowel sounds positive all four quadrents , no organomegally . 6- Genitourinary : Defferred . 7- neurologic : Cranial nerve II to XII intact , no focal neurological deffecit . 8-psychatric : alert , oriented X 3 , appropriate affect , intact judgment and insight . 9-Lymphatic : no Lymphadenopathy . 10- musculoskeltal : cervical spine = motor stregnth in the deltoid and biceps, motor stregnth biceps and the wrist extensors (C6) . motor stregnth in the triceps muscle . deep tendon reflexes normal at the biceps , normal at Brachioradialis , normal at the Triceps positive cervical facet loading test . Severe tenderness over the occipital nerve bilaterally, more prominent on the left side Lumber spine = normal moter stegnth lower extremities ,thigh and legs .5/5 Assessment and Plan Assessment: Assessment and plan= 1-occipital neuralgia 2-cervicogenic headache 3-cervical spondylosis Status post diagnostic medial branch block cervical area C2 3 , C3 4 and third occipital nerve, patient had no benefit from it she continued to have severe headache Tissue was evaluated by Dr. Og ,and she recommended occipital nerve block , and occipital nerve block done , and the patient had 0 benefit from chronic and current use of high-risk medication (opioids) Patient denies any side effects of the current pain medication and the current treatment/medication ML and the patient to do activity of daily living , Diagnoses, prognosis, treatment options, including but not limited to physical therapy, medication management, interventional therapies, and surgery, were discussed with the patient All the questions answered Patient signed the narcotic agreement, and he was orally counseled, not to overuse, not to abuse, not to Divert , not tp sell pain medication, and to take it as prescribed only, Patient was counseled not to drive or operate heavy equipment while using narcotic medication, and advised not to use alcohol or any Illicit drugs while using the narcotis, the patient's verbalized understanding that lack of compliance with any of the above instructions and will likely to cause discharge from the pain service, not to renew his narcotic prescriptions Medication managements= patient will be given prescription refills for [place] 10/325 every 12 hours dispense 60 with one refill, patient could benefit from Mobic 7.5 by mouth twice a day, and prescription refill for baclofen 10 mg 3 times a day dispense 90 with 1 refill Patient could benefit from cervical epidural steroid injections, or seizure risk and benefits and alternatives discussed with the patient and her daughter and they agreed to procede Objective - Vital Signs Vital signs: Vital Signs Temp Pulse 112 H 03/25/18 13:06 Resp 16 03/25/18 13:06 BP 111/67 03/25/18 13:06 Pulse Ox 95 03/25/18 13:06 Intake & Output 03/25/18 03/26/18 03/26/18 18:59 06:59 18:59 Weight 50.349 kg PQRS Measure Charge Sheet Measure #130: Documentation of Current Meds in Medical Chart: Patient's medications documented in chart Measure #226: Tobacco Use: Screen & Cessation Intervention: Pt screened for tobacco use AND intervention given Measure #111: Pneumonia Vaccination: Pneumococcal vaccine NOT administered or previously given Measure #47: Advance Care Plan: Advance care planning discussed & documented, pt chose/unable to give Measure #412: Opioid Treatment Agreement: Documented signed opioid trtmnt agreemnt min once during opioid trtmnt Measure #408: Opioid Therapy Follow-up Evaluation: Patient had f/u eval minimum every 3 months during opioid therapy Measure #317: Preventitive Care & Scrn High Bld Press & F/U: Normal blood pressure, f/u not required Measure #128: Body Mass Index (BMI) Screening & Follow-up: BMI documented within normal parameters Measure #131: Pain Assessment & Follow-up: Pain positive & plan documented, Follow-up scheduled Measure #431: Unhealthy Alcohol Use Preventative Care & Scrn: Patient not identified as an unhealthy alcohol user PQRS Narrative: Smoking Status Current every day smoker Do You Want the Pneumonia No Vaccine AT THIS TIME? Narcotic Agreement Date Signed 12/04/16 Blood Pressure 111/67 Pain Intensity [Generalized] 10 Scale Used Numeric (1 - 10) Hx Alcohol Use (MH) Yes: rare Home Medications: Ambulatory Orders LORazepam [Ativan] 0.5 mg PO BID PRN 01/05/16 Polyethylene Glycol 3350 [Miralax] 17 gm PO DAILY 01/05/16 risperiDONE 3 mg PO HS 01/05/16 Ipratropium-Albuterol Nebulize [Duoneb 0.5 mg-3 mg/3 ml Soln] 3 ml INHALATION QID PRN 04/01/16 Alendronate Sodium [Fosamax] 70 mg PO TH 12/03/16 Pravastatin Sodium [Pravachol] 40 mg PO HS 12/03/16 Albuterol Inhaler [Ventolin Hfa Inhaler] 1 - 2 puff INHALATION Q6HR PRN Flunisolide [Aerospan] 2 puff INHALATION BID 01/09/17 Meclizine [Antivert] 25 mg PO TID PRN 01/09/17 traZODone HCL 150 mg PO HS 04/24/17 Baclofen [Lioresal] 10 mg PO TID #90 tab 11/06/17 HYDROcodone/APAP 10-325MG [[place] 10-325] 1 tab PO Q12H PRN #60 tab 11/06/17 Controlled Substance Measures - Controlled Substance Measures Is patient prescribed a controlled substance at discharge?: Yes When asked, does pt state using other controlled substances?: No If prescribed controlled substance>3 days was MAPS reviewed?: Yes If Rx opioid, was Start Talking consent form obtained?: Yes If opioid is for acute pain is fill amount 7 days or less?: No Was information provided regarding opioid addiction?: Yes
== END | disposition home or self-care (01) ==
LOC: PNWHC3 12:33
PROVIDERS: ATTEND Specialist
DX: M47.812 Spondylosis without myelopathy or radiculopathy, cervical region (principal); M54.81 Occipital neuralgia; F17.200 Nicotine dependence, unspecified, uncomplicated; Z79.899 Other long term (current) drug therapy; Z98.890 Other specified postprocedural states
CPT/HCPCS: 99211

== ENCOUNTER → 2018-04-02 | Outpatient (CLI) | payer OTHER ==
[2018-04-02 17:25] LABS: Basophils % (A) 0 %; Eosinophils # (A) 0.1 k/uL (0-0.7); Eosinophils % (A) 1 %; HGB 13.9 gm/dL (11.4-16.0); Lymphocytes # (A) 2.3 k/uL (1.0-4.8); Lymphocytes % (A) 18 %; MCH 30.7 pg (25.0-35.0); MCHC 32.2 g/dL (31.0-37.0); MCV 95.1 fL (80.0-100.0); Mean Platelet Volume 6.9; Monocytes # (A) 0.7 k/uL (0-1.0); Monocytes % (A) 5 %; Neutrophils # (A) 9.8 k/uL (1.3-7.7); Neutrophils % (A) 75 %; Platelet Count 393 k/uL (150-450); RBC 4.52 m/uL (3.80-5.40)
[2018-04-02 17:37] LABS: Potassium 4.4 mmol/L (3.5-5.1)
== END ==
LOC: LABWHC1 16:21
PROVIDERS: ATTEND Psychiatry & Neurology Psychiatry
DX: F31.31 Bipolar disorder, current episode depressed, mild (principal)
CPT/HCPCS: 36415; 80051; 85025